=== PATIENT | female | born 1955 | race Caucasian/White ===

== ENCOUNTER → 2017-10-15 | Outpatient (CLI) | payer OTHER | LOC: RAD 13:01 | DX: R05 Cough (principal) ==

== ENCOUNTER → 2018-04-11 | Outpatient (CLI) | payer OTHER | LOC: NUC 08:56 | DX: M85.89 Other specified disorders of bone density and structure, multiple sites (principal); C50.919 Malignant neoplasm of unspecified site of unspecified female breast ==

== ENCOUNTER → 2019-03-31 | Outpatient (CLI) | payer OTHER | LOC: RAD 10:25 | DX: J98.4 Other disorders of lung (principal); J45.991 Cough variant asthma ==

== ENCOUNTER → 2019-04-16 | Outpatient (CLI) | payer OTHER | LOC: RAD 07:14 | DX: R05 Cough (principal) ==

== ENCOUNTER 2019-06-10 13:55 | Inpatient (IN) | payer OTHER ==
[~2019-06-10] VITALS: Ht 167.6 cm; Wt 56.7 kg
[2019-06-10 14:29] VITALS: BP 82/50
[2019-06-10] MEDS ORDERED: PROAIR HFA8.5 GM INH (14:56)
[2019-06-10] MEDS ORDERED: ALBUTEROL2.5 MG/3 M INH (14:56)
[2019-06-10] MEDS ORDERED: MONTELUKAST SOD10 MG PO (14:56)
[2019-06-10] MEDS ORDERED: BREO ELLIPTA 11 EACH INH (14:57)
[2019-06-10] MEDS ORDERED: VITAMIN B-12100 MC1 PO (15:00)
[2019-06-10] MEDS ORDERED: FISH OIL 1,001000 M3 PO (15:00)
[2019-06-10 15:35] LABS: ABSOLUTE NEUTROPHILS 8.9 thou/uL (1.4-8.2); BASOPHILS 0.1 % (0.0-2.0); EOSINOPHILS 0.1 % (0.0-3.0); HEMOGLOBIN 15.4 gm/dL (12.0-15.0); MCHC 33.4 g/dL (28.0-37.0); MCV 95.7 fL (80.0-100.0); MONOCYTES 5.5 % (1.0-8.0); PLATELET COUNT 280 thou/uL (150-400); POLYS 87.3 % (36.0-66.0); RBC 4.81 mil/uL (4.20-5.00); RDW 14.9 % (10.5-14.5); WBC 10.2 thou/uL (4.0-11.0)
[2019-06-10 15:39] LABS: CALCIUM 9.4 mg/dL (8.5-10.1); POTASSIUM 3.8 mmol/L (3.5-5.1)
[2019-06-10 15:47] LABS: TROPONIN-I 0.13 ng/mL (<0.06)
[2019-06-10 16:52] VITALS: BP 127/77
[2019-06-10 17:00] VITALS: BP 126/73
[2019-06-10 17:26] VITALS: BP 117/69
[2019-06-10 17:37] LABS: URINE BILIRUBIN NEGATIVE (Negative); URINE BLOOD TRACE (Negative); URINE CLARITY CLEAR; URINE COLOR YELLOW; URINE GLUCOSE-RANDOM* NEGATIVE (Negative); URINE KETONES NEGATIVE (Negative); URINE LEUKOCYTES-REFLEX NEGATIVE (Negative); URINE NITRITE-REFLEX NEGATIVE (Negative); URINE PROTEIN (DIPSTICK) TRACE (Negative); URINE SPECIFIC GRAVITY >= 1.030 (1.005-1.035); URINE UROBILINOGEN 0.2 E.U./dl (0.2-1.0)
[2019-06-10 19:30] VITALS: BP 103/61
--- NOTE | 2019-06-10 19:59 | NUR ---
1715 pt addmitted to 349, on droplet isolation. pt alert and oriented. Tachycardia, nonsymptomatic. Assessment, admission and vitals signs completed. pt oriented to room. Call light in reach. bed at lowest level. denies any other needs.
[2019-06-11] VITALS (8 sets, daily range): BP systolic 100–131; BP diastolic 58–75
--- NOTE | 2019-06-11 04:18 | NUR ---
PT MAKING SLOW PROGRESS TOWARDS GOALS. NOTED TO BE TACHYCARDIC, NARROW COMPLEX QRS WITH RATES 140-160'S. PT WILL MILD FEVER AT 100.2. CT CHEST COMPLETED, IVF, ANTIBX AND TYLENOL GIVEN. TACHYCARDIA RESOLVED QUICKLY AND PT HAS BEEN AFEBRILE FOR THE REST OF THE NIGHT. HAS ANY CHILLS OVERNIGHT. SEE CHARTING.
[2019-06-11 08:56] LABS: HEMATOCRIT 34.9 % (37.0-47.0); MCHC 33.1 g/dL (28.0-37.0); MCV 96.6 fL (80.0-100.0); RBC 3.61 mil/uL (4.20-5.00); RDW 14.5 % (10.5-14.5); WBC 8.6 thou/uL (4.0-11.0)
[2019-06-11 08:57] LABS: HEMOGLOBIN 11.6 gm/dL (12.0-15.0)
[2019-06-11 09:08] LABS: CALCIUM 7.9 mg/dL (8.5-10.1); CREATININE 0.7 mg/dL (0.6-1.0); POTASSIUM 3.3 mmol/L (3.5-5.1)
--- NOTE | 2019-06-11 18:46 | NUR ---
PT UP AD TROY TO BATHROOM. AMBULATED THIS AFTERNOON, HR SPIKED TO 150S EARLIER THIS MORNING, PT WAS ASYMPTOMATIC, HR RETURNED TO NORMAL AFTER TYLENOL ADMINISTRATION FOR FEVER.
[2019-06-12 03:58] VITALS: BP 143/88
--- NOTE | 2019-06-12 04:39 | NUR ---
RESTING QUIETLY. GAVE SOME TYLENOL FOR A HEADACHE, TMAX TONIGHT HAS BEEN 100.0 ORAL. CONTINUES ON IV FLUIDS. TAKING [place] PO. CAREPLAN REVIEWED.
[2019-06-12 05:20] LABS: CALCIUM 7.9 mg/dL (8.5-10.1); CREATININE 0.5 mg/dL (0.6-1.0); POTASSIUM 3.6 mmol/L (3.5-5.1)
[2019-06-12 07:50] VITALS: BP 129/80
[2019-06-12] MEDS ORDERED: AZITHROMYCIN 2250 MG PO (08:50)
[2019-06-12] MEDS ORDERED: CEFDINIR300 MG PO (08:50)
[2019-06-12] MEDS ORDERED: GUAIFENESIN DM S5 ML PO (08:51)
[2019-06-12] MEDS ORDERED: TAMIFLU75 MG PO (08:51)
[2019-06-12 11:34] VITALS: BP 126/77
--- NOTE | 2019-06-12 13:08 | NUR ---
PT FEELS GOOD, READY TO GO HOME, DR STINSON AWARE.
[2019-06-12 13:13] VITALS: BP 126/77
--- NOTE | 2019-06-12 13:53 | NUR ---
PT DISCHARGE INSTRUCTIONS REVIEWED WITH PT AND . PIV AND TELE WERE REMOVED. DISCHARGE INSTRUCTIONS, EDUCATION MATERIALS AND RXS SENT WITH PT
--- NOTE | 2019-06-12 17:12 | EKG ---
[place] [address] [address] [facility] [place] [address] ELECTROCARDIOGRAM REPORT Name: ISAIAH COREY Room #: 349-I [facility] IN ..#: [id number] Admission: 06/10/19 Attend Phys: Basilio Santos MD Discharge: 06/12/19 Date of : 53 Report #: [id number] THIS REPORT FOR: //name// [facility] ED Test Date: 2019-06-10 Test Time: 15:28:20 Pat Name: ISAIAH COREY Department: Room: [facility] Gender: F [employer]om Truck Driver: flavio : 1955 Requested By: Jacinto Tee Order Number: [id number] MD: Sunil Roche Measurements Intervals [place] Rate: 165 P: 99 AK: 177 QRS: 84 QRSD: 79 T: 50 QT: 273 QTc: 452 Interpretive Statements Supraventricular tachycardia Borderline right axis deviation ST depression, probably rate related Baseline wander in lead(s) V3 No previous ECG available for comparison Electronically Signed On 06-12-2019 17:12:02 CAR RENTAL AGENT by Sunil Roche [email or web address] <ELECTRONICALLY SIGNED> By: Sunil Roche MD 06/12/19 1712 1528 1528 Sunil Roche MD /LILIAN
== END 2019-06-12 13:41 | disposition home or self-care (01) | DRG 871 ==
LOC: ER 13:55 → EROBS 16:49 → 3W 16:49
PROVIDERS: Emergency Medicine; ADMIT Family Medicine
DX: A41.9 Sepsis, unspecified organism (principal); J18.9 Pneumonia, unspecified organism; J10.00 Influenza due to other identified influenza virus with unspecified type of pneumonia; N17.9 Acute kidney failure, unspecified; J45.909 Unspecified asthma, uncomplicated; Z79.899 Other long term (current) drug therapy; Z90.10 Acquired absence of unspecified breast and nipple; Z90.710 Acquired absence of both cervix and uterus
CPT/HCPCS: 10879

== ENCOUNTER → 2019-06-24 | Outpatient (CLI) | payer OTHER ==
[~2019-06-24] MED LIST: ALBUTEROL2.5 MG/3 M INH; AZITHROMYCIN 2250 MG PO; BREO ELLIPTA 11 EACH INH; CEFDINIR300 MG PO; FISH OIL 1,001000 M3 PO; GUAIFENESIN DM S5 ML PO; MONTELUKAST SOD10 MG PO; PROAIR HFA8.5 GM INH; TAMIFLU75 MG PO; VITAMIN B-12100 MC1 PO
== END ==
LOC: SJCVC 09:25
DX: I47.1 Supraventricular tachycardia (principal); Z85.3 Personal history of malignant neoplasm of breast; Z85.828 Personal history of other malignant neoplasm of skin; Z72.89 Other problems related to lifestyle

== ENCOUNTER → 2019-07-04 | Outpatient (CLI) | payer OTHER | LOC: SJCVCIMAG 08:22 | DX: R94.31 Abnormal electrocardiogram [ECG] [EKG] (principal) ==

== ENCOUNTER 2019-07-31 06:32 | Observation (INO) | payer OTHER ==
[~2019-07-31] VITALS: Ht 167.6 cm; Wt 58.6 kg
[2019-07-31 07:28] VITALS: BP 114/65
[2019-07-31] MEDS ORDERED: CALCIUM-MAGNES1 EAC2 PO (07:38)
[2019-07-31 07:41] LABS: ABSOLUTE NEUTROPHILS 1.7 thou/uL (1.4-8.2); HEMOGLOBIN 14.5 gm/dL (12.0-15.0); MCH 31.6 pg (26.0-34.0); MCHC 32.2 g/dL (28.0-37.0); MCV 98.3 fL (80.0-100.0); MONOCYTES 7.7 % (1.0-8.0); PLATELET COUNT 303 thou/uL (150-400); POLYS 41.3 % (36.0-66.0); RBC 4.58 mil/uL (4.20-5.00); WBC 4.2 thou/uL (4.0-11.0)
[2019-07-31 07:44] LABS: CALCIUM 9.3 mg/dL (8.5-10.1); CREATININE 0.8 mg/dL (0.6-1.0); POTASSIUM 3.7 mmol/L (3.5-5.1)
[2019-07-31 07:50] LABS: ALBUMIN 4.1 g/dL (3.4-5.0); TOTAL BILIRUBIN 0.5 mg/dL (<0.1-1.0); TOTAL PROTEIN 7.7 g/dL (6.4-8.2)
[2019-07-31 12:00] VITALS: BP 118/79
--- NOTE | 2019-07-31 12:08 | NUR ---
REC PT FROM RECOVERY WITHOUT REPORT THEN IMMEDIATELY THE NURSE FROM EP CALLED TO GIVE FULL REPORT. GROIN SITES TRACI, VENOUS, SONALI. PT A&0X4, NORMALLY WALKS INDEPENDENT. EDUCATED, AND PT ACKNOWLEDGES, ON RESTRICTIONS/COMPRESSION WITH ANY COUGH/LAUGHTER. SPOUSE AT BEDSIDE. SLIGHT HEADACHE, PT THIRSTY/HUNGRY. SNACKING AND ANSWERING ADMISSION QUESTIONS. SEE SEPARATE INTERVENTIONS FOR ASSESSMENTS. CARDIAC MONITORED. ENCOURAGED BOTH PT AND SPOUSE TO USE CALL LIGHT FOR ANY NEEDS
[2019-07-31 16:00] VITALS: BP 134/84
[2019-07-31 20:09] VITALS: BP 96/49
[2019-07-31 23:47] VITALS: BP 94/51
[2019-08-01 03:56] VITALS: BP 105/60
--- NOTE | 2019-08-01 04:52 | NUR ---
ASSUMED PT CARE AT 1900. PT IS ALERT AD ORIENTED. NO SIGN OF DISTRESS NOTED IN PT. PT IS LAYING IN BED RESTING COMFORTABLY. SPOUSE AT BEDSIDE. PT HAD AN ABLATION. BILATERAL GROIN SITES IS INTACT. NO SIGN OF BLEEDING, HEMATOMA OR BRIUSING NOTED. ASSESSMENT COMPLETED AND DOCUMENTED. DENIES ANY PAIN. CONTINUE TO MONITOR PT. DENIES FURTHER NEEDS AT THIS TIME.
[2019-08-01 08:02] VITALS: BP 100/64
[2019-08-01 08:49] VITALS: BP 100/64
--- NOTE | 2019-08-01 09:55 | NUR ---
ASSUMED CARE AT 0700, SHIFT ASSESSMENT DONE, DC ORDER RECEIVED, PERIPHERAL IV WAS TAKEN OUT. RIGHT AND LEFT GROIN SITES ARE CLEAN, DRY, INTACT. DC PAPERWROK GIVEN. LEFT WITH FAIMLY AT 0930 AM.
--- NOTE | 2019-08-01 11:06 | P ---
[facility] [place] [address] PROCEDURE REPORT Name: ISAIAH COREY Room #: [facility] Keyla Heredia#: [id number] Admission: 07/31/19 Attend Phys: Sunil Roche MD Discharge: 08/01/19 Date of : 53 Report #: [id number] THIS REPORT FOR: cc: Basilio Santos MD, Neal A. MD Couchonnal, Luis F. MD ~ CC: Sunil Santos PREOPERATIVE DIAGNOSIS: Supraventricular tachycardia. POSTOPERATIVE DIAGNOSIS: Focal atrial tachycardia arising from the posterior right atrium. PROCEDURES PERFORMED: 1. SVT ablation, CPT code 37774. 2. EP with left atrial pacing and recording, CPT code 10540. 3. Program stimulation pacing after IV drug infusion, CPT code 23570. 4. 3D mapping, CPT code 23855. HISTORY OF PRESENT ILLNESS: The patient is a 64-year-old who recently presented to the hospital with influenza and supraventricular tachycardia. She is here for EP study and ablation. ANESTHESIA: The patient underwent MAC anesthesia with no anesthesia related complications. DESCRIPTION OF PROCEDURE: The patient underwent informed consent. We discussed the details of the procedure including the risks, which include but not limited to bleeding, infection, vascular damage, cardiac perforation, pneumothorax. She understood these risks and is willing to proceed. The patient was brought to EP laboratory in fasting and sedated state, prepped and draped in a sterile fashion. I injected lidocaine in bilateral groins and obtained access to the bilateral femoral veins, placing an 8 and 6-Togolese short sheath in the right femoral vein and a 6 and 7-Togolese short sheath in the left femoral vein. Next, under fluoroscopy, I placed 3 quadripolar catheters at the HRA, His and RV positions and a decapolar catheter in the coronary sinus. Of note, it was somewhat challenging to get into the CS, but eventually was able to get into the true CS which was somewhat vertical. Next, a basic EP study was performed. At baseline, the patient was in sinus rhythm with sinus cycle length of 925 milliseconds, ND interval 165 milliseconds, QRS duration 80 milliseconds and QT interval 425 milliseconds, AH interval 110 milliseconds and HV interval 36 milliseconds. Next, atrial burst pacing was performed and AV block was noted at 320 milliseconds. AV esteban ERP is noted at 320 milliseconds at 500 millisecond [facility] [address] [place] [address] PROCEDURE REPORT Name: ISAIAH COREY Room #: 215-P [facility] Keyla Heredia#: [id number] Admission: 07/31/19 Attend Phys: Sunil Roche MD Discharge: 08/01/19 Date of : 53 Report #: [id number] cycle length. Ventricular pacing was performed and VA block was noted at 510 milliseconds. Ventricular atrial extrastimuli were delivered and there was evidence of decremental and midline VA conduction. Next, isoproterenol infusion was started at 2 mcg per minute and I induced what appeared to be an atrial tachycardia with a cycle length of 370 milliseconds and a high to low atrial activation. I terminated this with atrial pacing. As I thought that the arrhythmia that we were going to ablate was AV esteban reentrant tachycardia as such what the EKG looked like. I increased isoproterenol to 5 mcg per minute and continued aggressive atrial burst pacing and never induced AV esteban reentrant tachycardia. I did continue to get this atrial tachycardia and therefore decided to proceed with ablation of this. At 5 mcg per minute, the atrial tachycardia rate was around 190 beats per minute, so turned isoproterenol a little bit and then turned it back on at 3 mcg per minute and decided to map this atrial tachycardia at this rate. 3D MAPPING AND ABLATION: Next, I removed my HRA catheter and placed a [employer] PentaRay catheter into the right atrium and performed an activation map and 3D map of this tachycardia. It became evident that this was arising from the posterior right atrium at about the level of the His bundle. There was a very focal region where this was arising from and manipulation of my PentaRay catheter in this region would result in termination of the tachycardia. Therefore, I removed the PentaRay catheter and placed the ablation catheter up at this spot. I performed ablation at 35 [address] and at the site of earliest activation based on her MAP, the patient would have very rapid atrial tachycardia with ablation at this site at around 190 beats per minute. I performed extensive ablation throughout this region. Post-ablation testing was therefore performed. Post-ablation, the patient remained on isoproterenol at 3 mcg per minute. I continued performing an atrial burst pacing and single atrial extrastimuli. Previously single atrial extrastimuli would induce this atrial tachycardia. We tested for approximately 30 minutes and this was rendered non-inducible. I continued testing as the isoproterenol decreased to 2 mcg per minute and then performed further testing off of isoproterenol. This atrial tachycardia was now rendered non-inducible. Post-ablation, the patient was in sinus rhythm, sinus cycle length of 560 milliseconds, ND interval 190 milliseconds, QRS duration 90 milliseconds, QT interval 360 milliseconds. As such, the procedure was concluded. Catheters and sheaths were pulled and hemostasis was obtained. CONCLUSIONS: 1. Successful ablation of an atrial tachycardia arising from the posterior right atrium. 2. Normal SA esteban function. [facility] [address] [place] [address] PROCEDURE REPORT Name: ISAIAH COREY Room #: 215-P [facility] Keyla MFauziaR.#: [id number] Admission: 07/31/19 Attend Phys: Sunil Roche MD Discharge: 08/01/19 Date of : 53 Report #: [id number] 3. Normal AV esteban function. 4. No other inducible arrhythmias on or off isoproterenol. <ELECTRONICALLY SIGNED> By: Sunil Roche MD 08/01/19 1106 1144 1243 Sunil Roche MD /nt
== END 2019-08-01 10:00 | disposition home or self-care (01) ==
LOC: CATH 06:32 → 2N 13:51 → CATH 14:57 → ENTRNSPT 08-01 09:16 → EDTRNSPTSTS 08-01 09:19 → 2N 08-01 10:00
PROVIDERS: ADMIT Internal Medicine Cardiovascular Disease
DX: I47.1 Supraventricular tachycardia (principal)
CPT/HCPCS: 62110; 62900; 70005

== ENCOUNTER → 2020-01-26 | Outpatient (CLI) | payer OTHER ==
[~2020-01-26] MED LIST changes: +CALCIUM-MAGNES1 EAC2 PO; +SINGULAIR 10 MG10 M1 PO
== END ==
LOC: LAB 08:57
PROVIDERS: ATTEND Specialist
DX: Z01.812 Encounter for preprocedural laboratory examination (principal); Z20.828 Contact with and (suspected) exposure to other viral communicable diseases

== ENCOUNTER → 2020-01-30 | Outpatient (CLI) | payer OTHER ==
[~2020-01-30] VITALS: Ht 167.6 cm; Wt 56.7 kg
--- NOTE | 2020-02-03 08:54 | P ---
[facility] [place] [address] PROCEDURE REPORT Name: ISAIAH COREY Room #: BRIGID TAYLOR BrookeAydenFauzia#: [id number] Admission: 01/30/20 Attend Phys: Al Rao Discharge: Date of : 53 Report #: [id number] THIS REPORT FOR: cc: Basilio Santos MD, Neal A. MD McElhinney, Christian C. MD ~ CC: Al Santos MD DATE OF SERVICE: 01/30/2020 PROCEDURE PERFORMED: Colonoscopy with polypectomy. HISTORY OF PRESENT ILLNESS: The patient is a 65-year-old female, who presents today for screening colonoscopy. Last colonoscopy was 5 years ago and negative. She has a family history of colon cancer in her mother. She denies any symptoms at this time. DESCRIPTION OF PROCEDURE: The risks and benefits of the procedure were explained to the patient, those risks including but not limited to bleeding, perforation, and the risk of sedation. She understood these risks and gave informed consent. Sedation was given using propofol per anesthesia. Next, a digital rectal exam was initially performed, which was normal. Next, using a standard Olympus colonoscope, the scope was placed in the patient's anus and advanced under direct vision to the cecum. The overall prep was excellent. The cecum and ileocecal valve were normal in appearance. Ascending colon was normal. In the transverse colon, a 10 mm pedunculated polyp was noted. This was removed by snare cautery, otherwise normal. The descending and sigmoid colon were normal. The rectal mucosa was normal. On retroflexion, no abnormalities were noted. The scope was then withdrawn and the procedure terminated. The patient tolerated the procedure well. IMPRESSION: 1. Transverse colon polyp. 2. Otherwise normal colonoscopy. RECOMMENDATIONS: 1. Await biopsy results. 2. Repeat colonoscopy in 5 years. [facility] [address] [place] [address] PROCEDURE REPORT Name: ISAIAH COREY Room #: REG [facility]#: [id number] Admission: 01/30/20 Attend Phys: Al Rao Discharge: Date of : 53 Report #: [id number] Thank you for allowing me to participate in her care. <ELECTRONICALLY SIGNED> By: Al Hernandez MD 02/03/20 0854 0942 1056 Al Hernandez MD /nt
--- NOTE | 2020-02-05 09:17 | PATH ---
[facility] [address] [place] [address] PATHOLOGY RPT PROCEDURE Name: PERSONISAIAH Room #: REG CLAUDIA Meza.Ayden.#: [id number] Admission: 01/30/20 Date of : 53 Discharge: Report #: [id number] Path Case #: [id number] [facility] Accession Number: [id number] . 01 Material submitted: . colon - POLYP AT TRANSVERSE COLON. Modifiers: transverse . 01 Clinical history: . DTS/COLONOSCOPY/FAMILY HISTORY,COLON CA . 02 Diagnosis: Polyp, at transverse colon, endoscopic biopsy: - Inflammatory polyp associated with surface ulceration and reactive hyperplastic changes. - Negative for dysplasia or malignancy. ((IUV:javon; 02/04/2020) QMS 02/04/2020 1421 Local . 02 Electronically signed: . Mia Greene MD, Pathologist NPI- [id number] . 01 Gross description: . The specimen is received in formalin, labeled "Isaiah Knapp, polyp at transverse". Received is a segment of polypoid red-brown tissue measuring 0.8 x 0.7 x 0.6 cm in greatest dimensions with an attached measuring 0.3 cm in length by 0.5 cm in diameter. The surgical margin is inked. The specimen is bisected and entirely submitted in cassette A1. (CAA; 02/03/2020) QAC/QAC 02/03/2020 1130 Local . 02 Pathologist provided ICD-10: K51.40, K63.3 . 02 CPT . 602685 Specimen Comment: A courtesy copy of this report has been sent to [phone], [phone] Specimen Comment: [phone] Specimen Comment: Report sent to / Specimen Comment: A duplicate report has been generated due to demographic updates. Performed at: [address], [place] [id number] MD Nitish Reed MD Phone: [phone] Performed at: [address] [place] [address] PATHOLOGY RPT PROCEDURE Name: ISAIAH KNAPP Room #: REG CLAUDIA Heredia#: [id number] Admission: 01/30/20 Date of : 53 Discharge: Report #: [id number] Path Case #: [id number] [facility] [address] [place], [place] [id number] MD Mia Greene MD Phone: [phone]
== END | disposition home or self-care (01) ==
LOC: GI 07:31
PROVIDERS: ATTEND Specialist
DX: Z12.11 Encounter for screening for malignant neoplasm of colon (principal); Z80.0 Family history of malignant neoplasm of digestive organs; K51.40 Inflammatory polyps of colon without complications; J45.909 Unspecified asthma, uncomplicated; Z90.710 Acquired absence of both cervix and uterus; Z98.890 Other specified postprocedural states; Z79.899 Other long term (current) drug therapy; Z85.3 Personal history of malignant neoplasm of breast; Z87.01 Personal history of pneumonia (recurrent)
CPT/HCPCS: 62110; 62900

== ENCOUNTER → 2020-03-23 | Outpatient (CLI) | payer OTHER | LOC: NUC 10:28 | PROVIDERS: ATTEND Family Medicine | DX: M85.88 Other specified disorders of bone density and structure, other site (principal) ==

== ENCOUNTER 2020-10-25 00:16 | Emergency (ER) | payer OTHER ==
[~2020-10-25] VITALS: Ht 167.6 cm; Wt 59.0 kg
[2020-10-25 02:39] VITALS: BP 100/51
== END 2020-10-25 02:40 | disposition home or self-care (01) ==
LOC: ER 00:16
DX: S01.01XA Laceration without foreign body of scalp, initial encounter (principal); R42 Dizziness and giddiness; J45.909 Unspecified asthma, uncomplicated; Z85.3 Personal history of malignant neoplasm of breast; Z98.890 Other specified postprocedural states; Z90.711 Acquired absence of uterus with remaining cervical stump; Z79.899 Other long term (current) drug therapy; W18.09XA Striking against other object with subsequent fall, initial encounter; Y93.89 Activity, other specified; Y92.89 Other specified places as the place of occurrence of the external cause; Y99.8 Other external cause status

== ENCOUNTER → 2020-12-28 | Outpatient (CLI) | payer OTHER | LOC: SJCVC 11:29 | PROVIDERS: ATTEND Internal Medicine Cardiovascular Disease | DX: I47.1 Supraventricular tachycardia (principal); Z98.890 Other specified postprocedural states; Z88.8 Allergy status to other drugs, medicaments and biological substances; Z79.899 Other long term (current) drug therapy; Z82.49 Family history of ischemic heart disease and other diseases of the circulatory system ==